=== PATIENT | female | born 1995 | race Caucasian/White ===

== ENCOUNTER 2023-02-03 20:04 | Emergency (ER) | payer OTHER, SELFPAY ==
[2023-02-03 20:15] VITALS: BP 115/90; PULSE 117; RESP 16; TEMP 37.2; O2SAT 97; BMI 27.3
--- NOTE | 2023-02-03 20:38 | ED.ANIMALBI1 ---
HPI - Animal Bite General Chief Complaint: Animal Bite Stated Complaint: CAT BITE Time Seen by Provider: 02/03/23 20:31 Mode of arrival: walk-in History of Present Illness HPI narrative: Patient is a 27-year-old female who presents to the emergency department for the evaluation of a cat bite to the dorsum of the left index finger that was sustained three days ago by a stray cat. Patient has an unknown last tetanus shot. She is not sure if she may be . In the last day she has noticed swelling and redness to the dorsum of the left index finger, she did not sustain any bites and has not had any swelling or redness to the palm of the left hand. No medications taken prior to arrival. Related Data Previous Rx's Medication Instructions Recorded cefuroxime axetil 500 mg tablet 500 mg PO BID 10 days #20 tabs 02/03/23 clindamycin HCl 150 mg capsule 300 mg PO Q6H 10 days #80 caps 02/03/23 ketorolac 10 mg tablet 10 mg PO TID PRN pain #10 tabs 02/03/23 ondansetron 4 mg disintegrating 4 mg PO Q6H PRN nausea and 02/03/23 tablet vomiting #12 tabs Allergies Allergy/AdvReac Type Severity Reaction Status Date / Time amoxicillin Allergy Mild Verified 02/03/23 20:20 Review of Systems ROS Constitutional Denies: fever or chills Cardiovascular Denies: chest pain Respiratory Denies: shortness of breath or cough Gastrointestinal Denies: nausea or vomiting Integumentary/Breast Reports: redness and skin tenderness Neurological Denies: headache PFSH PFSH Social History Smoking status: Current every day smoker Exam Narrative Exam Narrative: Gen.: Awake, alert, in no distress Head: Normocephalic, atraumatic ENT: Moist mucous membranes Respiratory: No respiratory distress Extremities: Left 2nd digit with punctate wound noted over the PIP joint, no wounds or swelling noted over the palmar aspect of the left index finger. No red streaking or circumferential swelling noted. Normal flexion and extension at the PIP and DIP joints with no pain out of proportion on exam. Psych: Normal mood and affect Neuro: No focal neuro deficit Constitutional Vital Signs - 24 hr 02/03/23 20:15 Temperature 98.9 F Pulse Rate [Monitor] 117 H Respiratory Rate 16 Blood Pressure [Left Arm] 115/90 H Pulse Oximetry 97 Course Vital Signs Vital signs: Vital Signs Temperature 98.9 F 02/03/23 20:15 Pulse Rate 117 H 02/03/23 20:15 Respiratory Rate 16 02/03/23 20:15 Blood Pressure 115/90 H 02/03/23 20:15 Pulse Oximetry 97 02/03/23 20:15 Temperature 98.9 F 02/03/23 20:15 Pulse Rate 117 H 02/03/23 20:15 Respiratory Rate 16 02/03/23 20:15 Blood Pressure 115/90 H 02/03/23 20:15 Pulse Oximetry 97 02/03/23 20:15 MDM - Animal Bite MDM Narrative Medical decision making narrative: X-rays with no evidence of foreign body, patient with evidence of early cellulitis, no indication of flexor tenosynovitis on exam. No circumferential or fusiform swelling or redness noted. Tetanus is updated. Patient was unsure status will test was performed before testing, this is negative. Due to amoxicillin ALLERGY, patient is started on Ceftin and clindamycin per guidelines for animal bites. She is encouraged to soak the area, follow-up with PCP and return to the Emergency Room if symptoms change or worsen. Medical Records Attestation: I reviewed the patient's medical records. Lab Data Labs: Lab Results 02/03/23 Range/Units 20:42 Urine HCG, Qual Negative (NEGATIVE) Imaging Data Finger x-ray: Attestation: I have reviewed the pertinent imaging results. My impression: Three-view finger: No fracture, dislocation, or soft tissue foreign body noted Discharge Plan Discharge Chief Complaint: Animal Bite Clinical Impression: Cat bite, Cellulitis of finger of left hand Patient Disposition: Home, Self-Care Time of Disposition Decision: 21:44 Condition: Good Prescriptions / Home Meds: New ketorolac 10 mg tablet 10 mg PO TID PRN (Reason: pain) Qty: 10 0RF ondansetron 4 mg tablet,disintegrating 4 mg PO Q6H PRN (Reason: nausea and vomiting) Qty: 12 0RF clindamycin HCl 150 mg capsule 300 mg PO Q6H 10 Days Qty: 80 0RF cefuroxime axetil 500 mg tablet 500 mg PO BID 10 Days Qty: 20 0RF Instructions: Animal Bite (ED), Cellulitis (ED) Stand Alone Forms: Portal Instructions Referrals: Physician,Non-Staff, MD [Primary Care Provider] - 1 week Follow Up Appointments: Your doctor
[2023-02-03 20:50] LABS: HCG Qualitative Urine* NEGATIVE (NEGATIVE)
[2023-02-03] MEDS: ADACEL DIPH,PERTUSS(ACELL),TET VAC/PF 0.5 ML ADULT SYRINGE IM (21:01)
--- NOTE | 2023-02-03 21:50 | XR_ITS ---
The [address] [address] Patient Name: MIRIAM LEWIS MRN: [id number] date: 1995 Sex: F Assigned Patient Location: ED.MAIN Current Patient Location: ER Accession/Order Number: [id number] Exam Date: 02/03/2023 21:50 Report Date: 02/03/2023 22:36 At the request of: MIRIAM RIVERA Procedure: XR finger LT min 2V EXAM: XR finger LT min 2V HISTORY: animal bite COMPARISON: None. TECHNIQUE: 3 views of the left second digit FINDINGS: No acute fracture seen. Joint alignment is normal. Joint spaces are preserved. Soft tissue swelling of the left second digit is seen. No radiopaque density seen within the left second digit to suggest retained foreign body. IMPRESSION: No acute fracture or malalignment of the left second digit. Soft tissue swelling of the second digit is seen. Electronically authenticated by: YAZMIN SPRINGER Date: 02/03/2023 22:36
[2023-02-03] MEDS: CEFUROXIME AXETIL 250 MG TABLET 500 MG PO (22:05)
[2023-02-03] MEDS: CLINDAMYCIN HCL 150 MG CAPSULE 450 MG PO (22:06)
== END 2023-02-03 22:09 | disposition home or self-care (01) ==
PROVIDERS: Physician Assistant; Emergency Provider Emergency Medicine
DX: S61.251A Open bite of left index finger without damage to nail, initial encounter (principal); L03.012 Cellulitis of left finger; W55.01XA Bitten by cat, initial encounter; Z23 Encounter for immunization
CPT/HCPCS: 73140; 84703; 90471; 90715; 99284